=== PATIENT | female | born 1960 | race Two or more races ===

== ENCOUNTER 2024-11-20 14:45 | Emergency (ER) | payer MEDICAID, MEDICARE, OTHER ==
[~2024-11-20] VITALS: Ht 160 cm; Wt 78.9 kg
[2024-11-20] MEDS ORDERED: HYDROMORPHONE 2 MG/1 ML DISP.SYRIN ONE (15:53)
[2024-11-20] MEDS: HYDROMORPHONE 1 MG/1 ML DISP.SYRIN IM ONE (15:57)
[2024-11-20] MEDS ORDERED: ONDANSETRON ODT 4 MG TAB.RAPDIS ONE (15:58)
[2024-11-20] MEDS: ONDANSETRON ODT 4 MG TAB.RAPDIS SL ONE (15:58)
[2024-11-20] MEDS ORDERED: HYDR-3980 PO (18:10)
[2024-11-20 18:22] VITALS: BP 129/71; O2SAT 99
== END 2024-11-20 18:27 | disposition home or self-care (01) ==
LOC: ER 14:45
DX: S20.219A Contusion of unspecified front wall of thorax, initial encounter (principal); S80.01XA Contusion of right knee, initial encounter; S80.02XA Contusion of left knee, initial encounter; E11.9 Type 2 diabetes mellitus without complications; Z86.718 Personal history of other venous thrombosis and embolism; Z88.0 Allergy status to penicillin; Z88.6 Allergy status to analgesic agent; Z91.041 Radiographic dye allergy status
CPT/HCPCS: 99284; 71101; 73560 ×2; 96372; J1171; A4606; A4663; Q0162